=== PATIENT | male | born 1955 | race Two or more races ===

== ENCOUNTER 2025-04-29 07:56 | Day surgery (SDC) | payer OTHER, MEDICAID ==
[~2025-04-29] VITALS: Ht 190.5 cm; Wt 87.1 kg
[~2025-04-29 07:56] MED LIST: ALBU108A5 IN; FLUT1AER3 IN
[2025-04-29] MEDS: IODIXANOL 320MG/ML 100ML BTL IV ONE (13:42)
[2025-04-29] MEDS: SODIUM CHL 0.9% 0 ML ONE (13:46)
[2025-04-29] MEDS: ANGIOMAX 250 MG VIAL IV ONE (13:46)
[2025-04-29] MEDS: LIDOCAINE 2%HCL (LOCAL ANESTH.) INJ 20ML MDV ONE (13:46)
[2025-04-29] MEDS: fentaNYL CITRATE 100 MCG/2 ML VL ONE (13:46)
[2025-04-29] MEDS: HEPARIN SODIUM (PORCINE) 5000 UNITS/ML 1ML VIAL ONE (13:46)
[2025-04-29] MEDS: VERAPAMIL 2.5MG/ML INJ 2ML VIAL IV ONE (13:46)
[2025-04-29] MEDS: MIDAZOLAM HCL 2MG/2ML 2ml VIAL (1mg/ml) ONE (13:46)
--- NOTE | 2025-04-29 14:33 | DVHOP2 ---
Operative Report Operative Report CARDIAC SENIOR MANAGING DIRECTOR PROCEDURE REPORT [place], [place] Date of Service: Equipment Maintenance Technician: Michela Herrmann MD PROCEDURES PERFORMED: Coronary angiogram, left heart catheterization, conscious sedation administration and supervision, less than 15 minutes; fluoroscopy use and interpretation. rigth heart cath, sedation 15-30 mins, PREOPERATIVE DIAGNOSES: ACS, pulm htn, r/o cad POSTOP DIAGNOSIS: mild cad DESCRIPTION OF PROCEDURE: The patient or appropriate family signed informed consent understanding the risks, benefits and alternatives of the procedure, they wished to proceed. The patient was brought to the cardiac slab puller in n.p.o. state. The patient was prepped in a sterile fashion. Sedation was used per cardiac cath protocol. I administered 2 mL of 2% lidocaine to the right wrist. With an antegrade front wall puncture. I cannulated the right radial artery and placed a 6-[place] Glidesheath slender. over a antecubital IV i changed out to 6F glidesheath under sterile precautions and floated a swan intO RV. as RV was quite large i was unable to access the PA even with swan wire. however, RV pressures were normal. Next, an intra-arterial spasmolytic was administered. Next, a - 6[place] catheter and were used for coronary angiogram and LVEDP measurement and pressure pullback. At the completion of procedure, all guides and wires were removed, and there were no immediate complications. FINDINGS: RCA: large dominant vessel off the right sinus of Valsalva, there is no severe flow limiting stenosis. LEFT MAIN: large size left main, it bifurcates into LAD and circumflex. no stenosis CIRCUMFLEX: large caliber vessel coming off the left main with no flow limiting stenosis. LAD: LAD is a large caliber vessel coming of the left main. no stenosis LVEDP of 3 mmhg RA 12 mmhg RV 28/7/12 CONCLUSIONS: 1. mild cad 2. normal lvedp 3. RV pressurs not elevated however RV is enlarged PLAN: Aggressive risk factor modification and medical management for the patient. check echo copd optimazation MICHELA HERRMANN MD Apr 29, 2025 14:33
[2025-04-29 14:35] VITALS: BP 173/112; PULSE 58; RESP 18; O2SAT 95
[2025-04-29 15:04] VITALS: BP 171/120; PULSE 55; RESP 16; O2SAT 96
[2025-04-29 15:58] VITALS: BP 173/97; PULSE 57; RESP 14; O2SAT 96
--- NOTE | 2025-04-29 16:31 | DVHSR ---
APPROVED REPORT EXAM: Two-dimensional and M-mode echocardiogram with Doppler and color Doppler. Blood Pressure: 179/101 mmHg INDICATION Pulm Htn RISK FACTORS Height: 6'3", Weight: 192 DIMENSIONS LVDd5.4 (3.8-5.7cm)LA (2D)4.5 (1.9-4.0cm)Aortic Root3.7 (2.0-3.7cm) LVDs3.5 (2.5-4.0cm)LA (MM) (1.9-4.0cm)Aortic Cusp Exc2.0 (1.5-2.0cm) EF (%) 64.0 (55-70%)Rt. Atrium4.7 (1.9-4.0cm)Asc. Aorta cm IVSd1.3 (0.7-1.1cm)RV (D)4.5 (1.8-2.4cm) PWd0.8 (0.7-1.1cm) Mitral Valve MitralMitral Stenosis E wave0.51m/sMV Mean GR.mmHg A wave0.87m/sMV Peak GR.mmHg E/A ratio0.62D MVAcm2 DECEL [id number] 1/2 [place] Aortic Valve Aortic ValveAortic Stenosis V10.97m/Alexis Mean GR.3mmHg V21.14m/Alexis Peak GR.5mmHg LVOT Diameter2.5 (1.8-2.4cm)Doppler AVA4.17cm2 Pulmonic Valve V20.67m/s Tricuspid Valve TR Velocity2.56m/s [id number] Conclusion lvef 65% mild LVH normal rv function mild left atrium enlarged mild tricuspid regurg PASP of 35 mmhg
--- NOTE | 2025-04-30 09:19 | ECG ---
[facility] Test Date: 2025-04-29 Test Time: 12:37:31 Pat Name: VIOLETA CLARKE Department: Room: Gender: M [employer]: TOMMY : 1955 Requested By: MICHELA HERRMANN Order Number: [id number] Reading MD: Chalino Barone Measurements Intervals [place] Rate: 76 P: 0 WI: 204 QRS: 44 QRSD: 100 T: 62 QT: 444 QTc: 499 Interpretive Statements Normal sinus rhythm Cannot rule out Inferior infarct , age undetermined Electronically Signed On 05-02-2025 21:07:55 PDT by Chalino Barone Please click the below link to view image of tracing.
== END 2025-04-29 17:30 | disposition home or self-care (01) ==
LOC: CATH 07:56
PROVIDERS: ATTEND Internal Medicine
DX: I25.10 Atherosclerotic heart disease of native coronary artery without angina pectoris (principal); I27.20 Pulmonary hypertension, unspecified; I50.9 Heart failure, unspecified; J44.9 Chronic obstructive pulmonary disease, unspecified; I24.9 Acute ischemic heart disease, unspecified; F17.210 Nicotine dependence, cigarettes, uncomplicated; Z79.899 Other long term (current) drug therapy; Z98.890 Other specified postprocedural states; R06.02 Shortness of breath
CPT/HCPCS: 93005; 93306; 93460; C1769; C1894; J1644; J2250; J3010; J7030; Q9967; 99152